=== PATIENT | male | born 1970 | race Caucasian/White ===

== ENCOUNTER → 2017-05-04 | Outpatient (CLI) | payer MEDICAID | LOC: FIMAGING 10:06 | PROVIDERS: ATTEND Family Medicine Sports Medicine | DX: M19.041 Primary osteoarthritis, right hand (principal); M23.91 Unspecified internal derangement of right knee; G89.29 Other chronic pain ==

== ENCOUNTER → 2017-06-28 | Outpatient (CLI) | payer MEDICAID | LOC: FIMAGING 16:01 | PROVIDERS: ATTEND Family Medicine Sports Medicine | DX: M23.221 Derangement of posterior horn of medial meniscus due to old tear or injury, right knee (principal); M22.41 Chondromalacia patellae, right knee ==

== ENCOUNTER 2017-10-10 13:59 | Emergency (ER) | payer MEDICAID ==
[2017-10-10 14:04] VITALS: BP 113/69
--- NOTE | 2017-10-10 14:24 | EDPHY ---
H & P Smoking Status: Current some day smoker Time Seen by Provider: 10/10/17 14:05 HPI/ROS: CHIEF COMPLAINT: Right knee injury, right ankle injury HISTORY OF PRESENT ILLNESS: 47-year-old male presents to the emergency department by private vehicle with complaints of pain in his right knee and ankle. The patient has had previous surgery to his right knee and has a known right knee meniscal tear that he has been undergoing physical therapy for. He states he was playing kickball last night and he kicked a heavy ball and twisted his right ankle and immediately felt pain in the medial aspect of his right knee. He is concerned about worsening tear. He has a scheduled appointment with his orthopedic surgeon on , in 2 days however he presents to the emergency department today for evaluation. He is able to bear weight however this causes significant pain. ROS: Denies numbness or tingling in his toes, pain in the right foot or right hip. (Marely Kennedy) Past Medical/Surgical History: Right knee surgery (Marely Kennedy) Social History: and lives in [place] (Marely Kennedy) Physical Exam: Examination the right knee reveals no obvious effusion. He has well-healed surgical scars to the anterior aspect of the right knee. He has full range of motion of the right knee including flexion and extension. There is no obvious laxity of the ligaments. He has no pain with palpation in the lateral joint line. He has very mild pain with palpation the medial joint line. No palpable crepitus other bony abnormalities. No abrasions. Antalgic gait. Mild swelling noted to the lateral aspect of the right ankle. He has mild reproducible pain with palpation just distal to the lateral malleolus. Nontender to palpate over the fibula or the tibia. Full range of motion of the right ankle. (LindahenrryAzraMarely M) Constitutional: Initial Vital Signs Temperature (C) 37.0 C 10/10/17 14:02 Heart Rate 63 10/10/17 14:02 Respiratory Rate 16 10/10/17 14:02 Blood Pressure 113/69 10/10/17 14:02 O2 Sat (%) 95 10/10/17 14:02 O2 Delivery Mode Room Air Allergies/Adverse Reactions: No Known Allergies Allergy (Unverified 10/10/17 14:01) Home Medications: Medication Instructions Recorded NK [No Known Home Meds] 10/10/17 MDM/Departure - MDM Imaging: I viewed and interpreted images myself - MDM Procedures: Patient was placed in straight leg knee immobilizer and ankle stirrup splint and examined post application in good placement with normal DATE NIGHT CAREGIVER. (Marely Kennedy) ED Course/Re-evaluation: 47-year-old male presents emergency department with right knee pain or right ankle injury. Do not think x-rays are indicated. I do also did not think that the patient needs an emergent MRI in the emergency department. I did encourage him to keep scheduled appointment with his orthopedic surgeon.. He was also given the name of the orthopedic surgeon that is on-call. Patient was placed in knee immobilizer and ankle brace. Instructed to return if he had any change in symptoms or felt worse in any way. The patient was comfortable with this plan. (Marely Kennedy) I did not see this patient while he was in the emergency department. However his care was discussed with the PA while the patient was in the department. I agree with treatment plan and management (Aman Turner) - Depart Disposition: Home, Routine, Self-Care Clinical Impression: Right knee sprain Qualifiers: Encounter type: initial encounter Involved ligament of knee: unspecified ligament Qualified Code(s): S83.91XA - Sprain of unspecified site of right knee , initial encounter Right ankle sprain Qualifiers: Encounter type: initial encounter Involved ligament of ankle: unspecified ligament Qualified Code(s): S93.401A - Sprain of unspecified ligament of right ankle, initial encounter Condition: Good Instructions: Ankle Sprain (ED), Knee Sprain (ED), Ankle Stirrup Splint (ED), Knee Immobilizer (ED) Additional Instructions: Knee immobilizer for comfort and support. Ibuprofen 600 mg every 8 hr as needed for pain. Keep scheduled follow-up appointment with orthopedic surgeon on . Your also provided a name of the orthopedic surgeon that has on-call. When you call them, tell them that you have had previous surgery to your right knee aunt you have a new injury and were evaluated in the emergency department. Ask them if they would like for you to have outpatient imaging such as MRI prior to your scheduled appointment. Referrals: Hudson Arrington MD [Primary Care Provider] - As per Instructions Stephen Callahan MD [Medical Doctor] - 5-7 days, call for appt. (Orthopedic surgeon on-call)
== END 2017-10-10 14:35 | disposition home or self-care (01) ==
DX: S83.91XA Sprain of unspecified site of right knee, initial encounter (principal); S93.401A Sprain of unspecified ligament of right ankle, initial encounter; F17.200 Nicotine dependence, unspecified, uncomplicated; X50.9XXA Other and unspecified overexertion or strenuous movements or postures, initial encounter; Y92.89 Other specified places as the place of occurrence of the external cause; Y99.8 Other external cause status; Y93.6A Activity, physical games generally associated with school recess, summer camp and children
CPT/HCPCS: L1830; L4350

== ENCOUNTER → 2017-10-25 | Outpatient (CLI) | payer MEDICAID | LOC: FIMAGING 14:07 | PROVIDERS: ATTEND Orthopaedic Surgery Sports Medicine | DX: M25.561 Pain in right knee (principal); T84.89XA Other specified complication of internal orthopedic prosthetic devices, implants and grafts, initial encounter; M23.051 Cystic meniscus, posterior horn of lateral meniscus, right knee; M77.9 Enthesopathy, unspecified; M25.461 Effusion, right knee; Z98.890 Other specified postprocedural states ==